=== PATIENT | male | born 1955 | race Caucasian/White ===

== ENCOUNTER → 2019-06-23 | Outpatient (CLI) | payer OTHER ==
[~2019-06-23] MED LIST: ACID REFLUX PO; ASPIRIN EC325 M1 PO; AUGMENTIN 875875 M1 PO; COLACE100 MG PO; DIAZEPAM 5 MG5 M1; DIAZEPAM 5 MG5 MG PO; FISH OIL 500 M1 EAC1 PO; FLOMAX PO; FLOMAX0.4 MG PO; FORTESTA60 GM TOP; HYDROCODONE-AP1 EAC6 PO; LISINOPRIL10 MG PO; LOVASTAT40 PO; METFORMIN HCL500 MG PO; METRONIDAZOLE500 M4 PO; MULTI-VITAMIN1 EAC5 PO; NORCO 5-325 TA1 EACH PO; OMEPRAZOLE 20 M20 M1 PO; SORINE 80 MG TA80 M1 PO; WELLBUTRIN SR150 MG PO; XARELTO20 MG PO
== END ==
LOC: M.ULTRA 12:17
DX: E04.2 Nontoxic multinodular goiter (principal); E83.52 Hypercalcemia

== ENCOUNTER → 2019-07-07 | Outpatient (CLI) | payer OTHER | LOC: M.NUC 06-25 13:56 | DX: E04.1 Nontoxic single thyroid nodule (principal); E83.52 Hypercalcemia ==